=== PATIENT | male | born 1980 | race Hispanic/Latino ===

== ENCOUNTER 2017-02-12 20:39 | Emergency (ER) | payer BC ==
[2017-02-12 20:46] VITALS: BP 132/77; PULSE 62; RESP 16; TEMP 97.6; O2SAT 98
[2017-02-12] MEDS ORDERED: Absorbable Gelatin Sponge Size 12-7 TP ONE (20:55)
--- NOTE | 2017-02-12 20:56 | ED PDOC ---
Upper Extremity Pain/Injury Time Seen by Provider: 02/12/17 20:48 Chief Complaint (Nursing): Finger,Hand,&Wrist Chief Complaint (Provider): left thumb laceration History Per: Patient History/Exam Limitations: no limitations Onset/Duration Of Symptoms: Hrs (1x hour prior to arrival) Current Symptoms Are (Timing): Still Present Severity: Moderate Additional Complaint(s): 36 year old male with no pertinent medical history presents to the ED with complaints of a left thumb laceration that occurred 1x hour prior to arrival when he was chopping an onion. Patient denies having numbness, tingling, or any other injuries. Tetanus immunization is up to date. PMD: [facility] Past Medical History Reviewed: Historical Data, Nursing Documentation, Vital Signs Vital Signs: Last Vital Signs Temp 97.6 F 02/12/17 20:42 Pulse 62 02/12/17 20:42 Resp 16 02/12/17 20:42 BP 132/77 02/12/17 20:42 Pulse Ox 98 02/12/17 20:42 - Medical History PMH: No Chronic Diseases - Surgical History Surgical History: No Surg Hx - Family History Family History: States: No Known Family Hx - Social History Current smoker - smoking cessation education provided: No Alcohol: Social Drugs: Denies - Immunization History Hx Tetanus Toxoid Vaccination: Yes (up to date) - Allergies Allergies/Adverse Reactions: Allergies Allergy/AdvReac Type Severity Reaction Status Date / Time succinylcholine Allergy ANAPHYLAXIS Verified 02/12/17 20:47 Review of Systems Musculoskeletal: Positive for: Other (left thumb laceration) Neurological: Negative for: Numbness (no tingling) Physical Exam - Reviewed Nursing Documentation Reviewed: Yes Vital Signs Reviewed: Yes - Physical Exam Appears: Positive for: Well, Non-toxic, No Acute Distress Head Exam: Positive for: ATRAUMATIC, NORMOCEPHALIC Skin: Positive for: Normal Color Extremity: Positive for: Other (1/2 cm by 1/2 cm circular superficial skin avulsion on the distal portion of the distal phalanx of right thumb. non pulsatile active bleeding. no nail involvment. full range of motion actively of right thumb.) Neurologic/Psych: Positive for: Alert, Oriented (3x) - ECG O2 Sat by Pulse Oximetry: 98 (98) Pulse Ox Interpretation: Normal - Progress ED Course And Treament: Wound irrigated and cleansed by Gelfoam dressing applied by RN. Hemostasis achieved. Medical Decision Making Medical Decision Makin:48 Initial impression: 36 year old male with a left first digit laceration. Initial plan: * gelfoam * wound cleansing Scribe Attestation: Documented by Danay Pan, acting as a scribe for Leo Serrano Provider Scribe Attestation: All medical record entries made by the Scribe were at my direction and personally dictated by me. I have reviewed the chart and agree that the record accurately reflects my personal performance of the history, physical exam, medical decision making, and the department course for this patient. I have also personally directed, reviewed, and agree with the discharge instructions and disposition. Disposition - Clinical Impression Clinical Impression: Skin avulsion - Patient ED Disposition Is Patient to be Admitted: No - Disposition Disposition: Routine/Home Disposition Time: 21:31 Condition: STABLE Additional Instructions: FOLLOW UP WITH [facility] IN 3-4 DAYS FOR WOUND CHECK. Instructions: Acute Wound Care (ED) Forms: [employer] ([place]) Print Language: CITIZEN OF [place]
[2017-02-12] MEDS ORDERED: Absorbable Gelatin Sponge Size 12-7 ONE (21:13)
== END 2017-02-12 21:31 | disposition home or self-care (01) ==
LOC: H.ER 20:39
DX: S61.012A Laceration without foreign body of left thumb without damage to nail, initial encounter (principal); W26.0XXA Contact with knife, initial encounter; Y92.000 Kitchen of unspecified non-institutional (private) residence as the place of occurrence of the external cause